=== PATIENT | female | born 1995 | race Caucasian/White ===

== ENCOUNTER 2017-01-07 08:32 | Emergency (ER) | payer OTHER ==
[~2017-01-07] VITALS: Ht 167.6 cm; Wt 70.0 kg
[2017-01-07 08:33] VITALS: BP 118/78; PULSE 106; RESP 20; TEMP 98.8; O2SAT 100
--- NOTE | 2017-01-07 09:09 | PD ---
HPI Chief Complaint: Cold / Flu Symptoms Time Seen by Provider: 09:09 Travel History International Travel<30 days: No Contact w/Intl Traveler<30days: No Traveled to known affect area: No History of Present Illness HPI 21-year-old female presents to the emergency Department with complaint of bilateral "eye strain," sore throat, swollen anterior cervical glands 2 days. Her symptoms started while she was on a plane and the plane was landing. Reports ear pain during landing also, but denies at this time. Reports pressure above her right eye. Reports subjective fever. Denies vomiting. Reports pain when she moves her eyes. Denies lump in throat, difficulty swallowing, unusual drooling. Reports occasional cough. Denies nasal congestion. Denies shortness of breath. Has not taken any medications or tried any treatments to alleviate her symptoms. Symptoms are mild. No known allergies. Has no other medical complaints. No other modifying factors or associated signs and symptoms. PFSH Past Medical History Medical History: Denies Significant Hx Diminished Hearing: No Immunizations Current: Yes Tetanus Vaccination: < 5 Years Influenza Vaccination: Yes ?: Not LMP: 12/19/16 Past Surgical History Surgical History: No Previous Surgery Social History Alcohol Use: Yes (socially - drink wine) Tobacco Use: Yes (socially) Substance Use: No (denies) Allergies-Medications (Allergen,Severity, Reaction): Coded Allergies: No Known Allergies (Unverified , 01/07/17) Reported Meds & Prescriptions Reported Meds & Active Scripts Active No Active Prescriptions or Reported Medications Review of Systems Except as stated in HPI: all other systems reviewed are Neg Physical Exam Narrative GENERAL: Well-nourished, well-developed female patient, in no acute distress; afebrile, nontoxic-appearing SKIN: Warm and dry. No rash. HEAD: Atraumatic. Normocephalic. EYES: Pupils equal and round at 3 mm with brisk reaction. No scleral icterus. No injection or drainage. EOMI. PERRLA. ENT: Mucosa pink and moist. Oropharynx with erythema; without edema or exudates. No uvular edema. No uvular, palatal, or tonsillar deviation. Airway patent. EARS: Bilateral pinnae and external canals appear within normal limits. Bilateral tympanic membranes without erythema, dullness or perforation. NECK: Trachea midline. No cervical lymphadenopathy. CARDIOVASCULAR: Regular rate and rhythm. No murmur appreciated. RESPIRATORY: No accessory muscle use. Clear to auscultation. Breath sounds equal bilaterally. No retractions or tachypnea. GASTROINTESTINAL: Abdomen soft, non-tender, nondistended. Hepatic and splenic margins not palpable. Bowel sounds are active 4 quadrants. MUSCULOSKELETAL: No obvious deformities. No clubbing. No cyanosis. No edema. NEUROLOGICAL: Awake and alert. Oriented 3. No obvious cranial nerve deficits. Motor grossly within normal limits. Normal speech. Moves all extremities. 5/5 strength to all extremities. PSYCHIATRIC: Appropriate mood and affect; insight and judgment normal. Data Data Last Documented VS Vital Signs Date Time Temp Pulse Resp B/P Pulse Ox O2 Delivery O2 Flow Rate FiO2 01/07/17 08:58 Room Air 01/07/17 08:33 98.8 106 20 118/78 100 Orders Influenzae A/B Antigen (01/07/17 09:08) Group A Rapid Strep Screen (01/07/17 09:08) Ibuprofen (Motrin) (01/07/17 09:15) Strep Culture (Group A) (01/07/17 09:25) MDM Medical Decision Making Medical Screen Exam Complete: Yes Emergency Medical Condition: Yes Medical Record Reviewed: Yes Differential Diagnosis Sinus pressure, sinusitis, viral illness, viral pharyngitis, strep pharyngitis, influenza Narrative Course 21-year-old female with cold/flu symptoms 2 days. Patient is afebrile nontoxic appearing. Reports sore throat. Ibuprofen administered in the ER. Rapid strep ordered. 1019: Rapid strep negative. Ibuprofen prescribed for home. Discussed viral illness and symptomatic management. Instructed patient to follow up with primary care provider. Patient verbalizes understanding and agreement with treatment plan. Patient is medically cleared and stable for discharge. Discussed reasons to return to the emergency department. Patient agrees with treatment plan. The patients vital signs are stable and the patient is stable for outpatient follow-up and treatment. Patient discharged home, stable and in no acute distress. Diagnosis Primary Impression: Viral illness Additional Impression: Sinus pressure Referrals: Primary Care Physician Patient Instructions: Cold Symptoms (ED), General Instructions, Safe Use of Cough and Cold Medicines (ED) Additional Instructions: Ibuprofen or Tylenol as directed and as needed for pain [id number] decongestants or antihistamines as directed and as needed for symptom management Drink plenty of fluids to prevent dehydration Follow-up with your primary care provider Return to the emergency department immediately with worsening of symptoms Med/Other Pt SpecificInfo: Prescription(s) given Scripts Ibuprofen 800 Mg Gey017 Mg PO Q6HR PRN (PAIN) #30 TAB Ref 0 Prov:Jody Flores 01/07/17 Disposition: 01 DISCHARGE HOME Condition: Stable Jody Flores Jan 07, 2017 09:09
[2017-01-07] MEDS ORDERED: IBUPROFEN 800 MG TAB PO ONE (09:15)
[2017-01-07] MEDS ORDERED: IBUP800T23 PO (10:19)
== END 2017-01-07 10:37 | disposition home or self-care (01) ==
LOC: NEPK 08:32
DX: B34.9 Viral infection, unspecified (principal); R51 Headache; H57.8 Other specified disorders of eye and adnexa; R07.0 Pain in throat; R59.0 Localized enlarged lymph nodes; R05 Cough; Z72.0 Tobacco use
CPT/HCPCS: 87081; 87880; 99283